=== PATIENT | male | born 1980 | race Caucasian/White ===

== ENCOUNTER 2019-02-26 10:48 | Inpatient (IN) | payer MEDICAID ==
[~2019-02-26] VITALS: Ht 180.3 cm; Wt 114.6 kg
--- NOTE | 2019-02-26 11:07 | NUR ---
pt to ed for bladder and flank pain x5 days. pt was diagnosed with 5 kidney stones in november with surgery scheduled for march 15. pt states pain is worse and he can no longer wait until march 15. pt would like stones removed as soon as possible. connected to monitors. vss. edmd present for exam. awaiting orders.
--- NOTE | 2019-02-26 11:18 | NUR ---
iv established. labs drawn and sent. ua collected and sent. awaiting further orders.
[2019-02-26] MEDS ORDERED: MORPHINE SULFATE 4 MG/ML, 1ML ONE (11:23)
[2019-02-26] MEDS ORDERED: ONDANSETRON 2MG/ML, 2ML ONE (11:23)
[2019-02-26] MEDS: MORPHINE SULFATE 4 MG/ML, 1ML IVPush PRN ×2 (11:25→15:11)
--- NOTE | 2019-02-26 11:29 | NUR ---
pt medicated per mar. vss. awaiting results at this time. no needs expressed. call light within reach.
[2019-02-26] MEDS ORDERED: ONDANSETRON 2MG/ML, 2ML IVPush ONE (11:30)
[2019-02-26] MEDS ORDERED: SODIUM CHLORIDE FLUSH 10ML SYR IVF ONE (11:30)
[2019-02-26 11:37] LABS: BASOPHILS # (AUTO) 0.02 x10^3/uL (0-0.1); BASOPHILS % (AUTO) 0 % (0-1); EOSINOPHILS # (AUTO) 0.07 x10^3/uL (0-0.4); EOSINOPHILS % (AUTO) 1 % (1-7); LYMPHOCYTES # (AUTO) 1.53 x10^3/uL (1-3.4); LYMPHOCYTES % (AUTO) 26 % (22-44); MD NO; MEAN CORPUSCULAR HEMOGLOBIN 31.1 pg (27.5-34.5); MEAN CORPUSCULAR HGB CONC 34.1 g/dL (33.2-36.2); MEAN CORPUSCULAR VOLUME 91.4 fL (81-97); MEAN PLATELET VOLUME 9.6 fL (7.4-10.4); MONOCYTES # (AUTO) 0.42 x10^3/uL (0.2-0.8); MONOCYTES % (AUTO) 7 % (2-9); NEUTROPHILS # (AUTO) 3.88 x10^3/uL (1.8-6.8); NEUTROPHILS % (AUTO) 66 % (42-75); PLATELET COUNT 283 x10^3/uL (130-400); RED BLOOD COUNT 4.81 x10^6/uL (4.38-5.82); RED CELL DISTRIBUTION WIDTH 12.7 % (9.4-14.8)
--- NOTE | 2019-02-26 11:38 | NUR ---
pt resting in room. call light within reach. no needs expressed. vss. awaiting lab results and urology consult.
[2019-02-26 11:46] LABS: ALANINE AMINOTRANSFERASE 19 U/L (12-78); ALBUMIN 4.1 g/dL (3.4-5.0); CALCIUM 8.9 mg/dL (8.5-10.1); CREATININE 1.03 mg/dL (0.7-1.3)
[2019-02-26 11:48] LABS: ALKALINE PHOSPHATASE 134 U/L (45-117); BILIRUBIN,TOTAL 0.4 mg/dL (0.2-1.0)
[2019-02-26 11:49] LABS: ANION GAP 4 mmol/L (5-15); CHLORIDE 110 mmol/L (98-107)
[2019-02-26 12:07] LABS: MICROSCOPIC INDICATED
--- NOTE | 2019-02-26 12:30 | NUR ---
PT RESTING IN ROOM. VSS. NO NEEDS EXPRESSED. PAIN CONTROLLED. CALL LIGHT WITHIN REACH. AWAITING UROLOGY CONSULT.
[2019-02-26 12:39] LABS: CULTURE INDICATED? NO
--- NOTE | 2019-02-26 13:24 | NUR ---
PT UP SELF TO RR WITH STEADY GAIT. VSS. NO OTHER NEEDS. AWAITING UROLOGY CONSULT.
[2019-02-26] MEDS ORDERED: SODIUM CHLORIDE 0.9% 1,000 ML IV SCH (14:43)
[2019-02-26 14:58] VITALS: BP 103/69
[2019-02-26] MEDS ORDERED: DEXTROSE 4 GM TAB.CHEW PO PRN (15:00)
[2019-02-26] MEDS ORDERED: PROMETHAZINE 25 MG/ML, 1ML IM PRN (15:00)
[2019-02-26] MEDS ORDERED: LABETALOL 5MG/ML, 20ML IVPush PRN (15:00)
[2019-02-26] MEDS ORDERED: DEXTROSE 50%, 50ML SYRINGE IVPush PRN (15:00)
[2019-02-26] MEDS ORDERED: GLUCAGON 1 MG IM PRN (15:00)
[2019-02-26] MEDS ORDERED: ACETAMINOPHEN 325 MG TABLET PO PRN (15:00)
[2019-02-26] MEDS: morphine SULFATE 10 MG/ML, 1ML IVPush PRN (15:10)
[2019-02-26] MEDS: POTASSIUM CHLORIDE 10 MEQ in D5%-0.45% NACL 1,000 ML IV SCH (17:37)
[2019-02-26] MEDS: SODIUM CHLORIDE 0.9% 1,000 ML IV SCH ×2 (19:00→23:00)
[2019-02-26] MEDS: OXYcodone/APAP 5/325MG TABLET PO PRN (19:47)
[2019-02-26 20:56] VITALS: BP 111/67
[2019-02-26] MEDS ORDERED: SODIUM CHLORIDE FLUSH 10ML SYR IVF SCH (21:00)
[2019-02-27] MEDS: ONDANSETRON 2MG/ML, 2ML IVPush PRN ×3 (00:08→14:06)
[2019-02-27] MEDS: KETOROLAC 30 MG/1 ML IV PRN ×3 (00:14→19:52)
[2019-02-27] MEDS: SODIUM CHLORIDE 0.9% 1,000 ML IV SCH ×3 (01:51→05:47)
[2019-02-27 04:25] VITALS: BP 98/64
[2019-02-27 05:30] LABS: BASOPHILS # (AUTO) 0.03 x10^3/uL (0-0.1); BASOPHILS % (AUTO) 1 % (0-1); EOSINOPHILS # (AUTO) 0.21 x10^3/uL (0-0.4); EOSINOPHILS % (AUTO) 3 % (1-7); LYMPHOCYTES # (AUTO) 2.45 x10^3/uL (1-3.4); LYMPHOCYTES % (AUTO) 35 % (22-44); MD NO; MEAN CORPUSCULAR HEMOGLOBIN 31.3 pg (27.5-34.5); MEAN CORPUSCULAR HGB CONC 34.1 g/dL (33.2-36.2); MEAN CORPUSCULAR VOLUME 91.8 fL (81-97); MEAN PLATELET VOLUME 9.6 fL (7.4-10.4); MONOCYTES % (AUTO) 7 % (2-9); NEUTROPHILS % (AUTO) 55 % (42-75); PLATELET COUNT 239 x10^3/uL (130-400); RED BLOOD COUNT 4.21 x10^6/uL (4.38-5.82); RED CELL DISTRIBUTION WIDTH 12.6 % (9.4-14.8)
[2019-02-27 05:35] LABS: CHLORIDE 111 mmol/L (98-107)
[2019-02-27 05:41] LABS: ALANINE AMINOTRANSFERASE 18 U/L (12-78); ALBUMIN 3.1 g/dL (3.4-5.0); ALKALINE PHOSPHATASE 112 U/L (45-117); ANION GAP 3 mmol/L (5-15); CREATININE 1.12 mg/dL (0.7-1.3); TOTAL PROTEIN 5.3 g/dL (6.4-8.2)
[2019-02-27 05:43] LABS: BILIRUBIN,TOTAL < 0.1 mg/dL (0.2-1.0)
[2019-02-27 07:46] VITALS: BP 95/58
[2019-02-27] MEDS: morphine SULFATE 10 MG/ML, 1ML IVPush PRN ×2 (08:50→14:40)
[2019-02-27] MEDS: TAMSULOSIN 0.4 MG CAP.ER.24H PO SCH (08:50)
[2019-02-27] MEDS: POTASSIUM CHLORIDE 10 MEQ in D5%-0.45% NACL 1,000 ML IV SCH ×2 (11:05→21:13)
[2019-02-27] MEDS ORDERED: FENTANYL PF 250 MCG/5ML ONE ×2 (13:10→15:47)
[2019-02-27] MEDS ORDERED: MIDAZOLAM 1 MG/ML, 2ML ONE ×2 (13:10→15:47)
[2019-02-27 14:45] VITALS: BP 98/62
[2019-02-27] MEDS ORDERED: ACETAMINOPHEN 325 MG TABLET PO PRN (17:00)
[2019-02-27] MEDS ORDERED: ONDANSETRON 2MG/ML, 2ML IV PRN (17:00)
[2019-02-27] MEDS ORDERED: HYDROmorphone 2 MG/ML, 1ML IVPush PRN (17:00)
[2019-02-27] MEDS ORDERED: ONDANSETRON ODT 8 MG PO PRN (17:00)
[2019-02-27] MEDS ORDERED: PROMETHAZINE 25 MG/ML, 1ML IV PRN (17:00)
[2019-02-27] MEDS ORDERED: OXYcodone 5 MG/5 ML ORAL.SOL UDC PO PRN (17:00)
[2019-02-27] MEDS ORDERED: PROPOFOL 10 MG/ML, 20ML ONE (17:22)
[2019-02-27] MEDS ORDERED: NEOSTIGMINE 1 MG/ML, 10ML ONE (17:22)
[2019-02-27] MEDS ORDERED: ROCURONIUM 10MG/ML,5ML ONE (17:22)
[2019-02-27] MEDS ORDERED: GLYCOPYRROLATE 0.2MG/1ML, 5ML ONE (17:22)
[2019-02-27] MEDS ORDERED: SUCCINYLCHOLINE 20 MG/ML, 10ML ONE (17:22)
[2019-02-27] MEDS ORDERED: DEXAMETHASONE 4 MG/ML, 1ML ONE (17:22)
[2019-02-27] MEDS ORDERED: ONDANSETRON 2MG/ML, 2ML ONE (17:22)
[2019-02-27] MEDS ORDERED: CEFAZOLIN 1,000 MG ONE (17:22)
[2019-02-27] MEDS ORDERED: FENTANYL PF 100 MCG/2ML ONE (18:42)
[2019-02-27] MEDS ORDERED: OXYcodone 5 MG/5 ML ORAL.SOL UDC ONE (18:42)
[2019-02-27] MEDS: FENTANYL PF 100 MCG/2ML IV PRN ×2 (18:46→19:05)
[2019-02-27 20:32] VITALS: BP 120/80
[2019-02-27] MEDS: OXYcodone/APAP 5/325MG TABLET PO PRN (22:44)
[2019-02-28 00:09] VITALS: BP 132/74
[2019-02-28] MEDS: KETOROLAC 30 MG/1 ML IV PRN ×2 (02:04→08:25)
[2019-02-28 04:09] VITALS: BP 114/62
[2019-02-28 04:14] LABS: BASOPHILS # (AUTO) 0.01 x10^3/uL (0-0.1); BASOPHILS % (AUTO) 0 % (0-1); EOSINOPHILS % (AUTO) 0 % (1-7); LYMPHOCYTES # (AUTO) 0.48 x10^3/uL (1-3.4); LYMPHOCYTES % (AUTO) 6 % (22-44); MD NO; MEAN CORPUSCULAR HEMOGLOBIN 30.8 pg (27.5-34.5); MEAN CORPUSCULAR HGB CONC 33.6 g/dL (33.2-36.2); MEAN CORPUSCULAR VOLUME 91.7 fL (81-97); MEAN PLATELET VOLUME 9.8 fL (7.4-10.4); MONOCYTES # (AUTO) 0.11 x10^3/uL (0.2-0.8); MONOCYTES % (AUTO) 1 % (2-9); NEUTROPHILS # (AUTO) 7.27 x10^3/uL (1.8-6.8); NEUTROPHILS % (AUTO) 93 % (42-75); PLATELET COUNT 262 x10^3/uL (130-400); RED BLOOD COUNT 4.49 x10^6/uL (4.38-5.82); RED CELL DISTRIBUTION WIDTH 12.5 % (9.4-14.8)
[2019-02-28] MEDS: POTASSIUM CHLORIDE 10 MEQ in D5%-0.45% NACL 1,000 ML IV SCH (06:34)
[2019-02-28] MEDS ORDERED: SODIUM CHLORIDE 0.9% 1,000 ML IV SCH (07:30)
[2019-02-28 07:55] VITALS: BP 126/66
[2019-02-28] MEDS: TAMSULOSIN 0.4 MG CAP.ER.24H PO SCH (08:16)
[2019-02-28 10:17] VITALS: BP 135/85
[2019-02-28] MEDS ORDERED: ACET325T14 PO (11:46)
[2019-02-28] MEDS ORDERED: TAMS-11 PO (11:46)
[2019-03-01] MEDS ORDERED: ONDA4TAB7 PO (05:20)
[2019-03-01] MEDS ORDERED: HYDR-3237 PO (05:20)
== END 2019-02-28 12:07 | disposition home or self-care (01) | DRG 661 ==
LOC: ED 11:45 → EDIP 13:29 → 4NOR 14:39 → DCLOUNGE 02-28 11:57
PROVIDERS: ADMIT Hospitalist; ATTEND Hospitalist
PROC: 0TC78ZZ Extirpation of Matter from Left Ureter, Via Natural or Artificial Opening Endoscopic (ICD-10-PCS; 2019-02-27)
PROC: 0T768DZ Dilation of Right Ureter with Intraluminal Device, Via Natural or Artificial Opening Endoscopic (ICD-10-PCS; 2019-02-27)
PROC: 0TJB8ZZ Inspection of Bladder, Via Natural or Artificial Opening Endoscopic (ICD-10-PCS; 2019-02-27)
PROC: 0T778DZ Dilation of Left Ureter with Intraluminal Device, Via Natural or Artificial Opening Endoscopic (ICD-10-PCS; principal; 2019-02-27 13:00)
DX: N13.2 Hydronephrosis with renal and ureteral calculous obstruction (principal); E86.0 Dehydration; E16.2 Hypoglycemia, unspecified; R11.2 Nausea with vomiting, unspecified
CPT/HCPCS: 36415; 74018; 76000; 76770; 80053; 81001; 82360; 82962; 85025; 88300; 96374; 99285; G0378; J0690; J1100; J1885; J2250; J2405; J2704; J2710; J3010; J3480; C1758; C1769; C2617; J0330; J2270; J7030

== ENCOUNTER 2019-03-01 04:49 | Inpatient (IN) | payer MEDICAID ==
[~2019-03-01] VITALS: Ht 180.3 cm; Wt 111.0 kg
[~2019-03-01 04:49] MED LIST: ACET325T14 PO; TAMS-11 PO
[2019-03-01] MEDS ORDERED: HYDROmorphone 1 MG/ML, 1ML VIAL ONE ×2 (05:12→06:04)
[2019-03-01] MEDS ORDERED: ONDANSETRON 2MG/ML, 2ML ONE (05:12)
[2019-03-01] MEDS: HYDROmorphone 2 MG/ML, 1ML IVPush PRN ×2 (05:15→06:07)
[2019-03-01] MEDS ORDERED: HYDR-3237 PO (05:20)
[2019-03-01] MEDS ORDERED: ONDA4TAB7 PO (05:20)
--- NOTE | 2019-03-01 05:21 | NUR ---
IV SITE STARTED, PT MEDICATED PER MAR. MONITORS IN PLACE, CALL LIGHT WITHIN REACH
[2019-03-01] MEDS ORDERED: ONDANSETRON 2MG/ML, 2ML IVPush ONE (05:30)
[2019-03-01] MEDS ORDERED: SODIUM CHLORIDE FLUSH 10ML SYR IVF ONE (05:30)
--- NOTE | 2019-03-01 05:46 | NUR ---
PRODUCTION CONTROLLER AT PT'S BEDSIDE
--- NOTE | 2019-03-01 07:01 | NUR ---
REPORT GIVEN TO ALO PENA
--- NOTE | 2019-03-01 07:02 | NUR ---
RECEIVED REPORT AND ASSUMED PT. CARE. PT. IS RESTING WITH THE CP MONITOR IN PLACE. PT.'S VSS. HOB IS ELEVATED GREATER THAN 30 DEGREES. SIDERAILS REMAIN UP X 2 WITH THE CALL LIGHT IN PLACE. PT. STATES RELIEF FROM PAIN MEDS.
[2019-03-01] MEDS ORDERED: LACTATED RINGERS 1,000 ML IV SCH (07:30)
[2019-03-01] MEDS ORDERED: HYDROmorphone 1 MG/ML, 1ML INJ IVPush PRN (07:30)
[2019-03-01] MEDS ORDERED: KETOROLAC 30 MG/1 ML IVPush PRN (07:30)
[2019-03-01] MEDS ORDERED: CEFAZOLIN PMX 1GM/50ML 50 ML IV SCH (07:30)
[2019-03-01] MEDS ORDERED: CEFAZOLIN PMX 1GM/50ML 50 ML ONE (07:47)
--- NOTE | 2019-03-01 07:57 | NUR ---
IV ABX INFUSING NO BLOOD CULTURES ORDERED.
[2019-03-01] MEDS ORDERED: SODIUM CHLORIDE FLUSH 10ML SYR IVF PRN (08:00)
--- NOTE | 2019-03-01 08:03 | NUR ---
REPORT CALLED. PT. IS READY FOR TRANSPORT.
[2019-03-01] MEDS: LACTATED RINGERS 1,000 ML IV SCH ×2 (09:00→20:05)
[2019-03-01] MEDS: KETOROLAC 30 MG/1 ML IV PRN ×2 (12:12→23:07)
[2019-03-01] MEDS ORDERED: HYDROmorphone 1 MG/ML, 1ML INJ IV PRN (12:30)
[2019-03-01 13:51] VITALS: BP 110/63
[2019-03-01] MEDS: HYDROmorphone 2 MG/ML, 1ML IV PRN ×3 (16:03→23:10)
[2019-03-01] MEDS: CEFAZOLIN PMX 1GM/50ML 50 ML IV SCH (16:24)
[2019-03-01 20:23] VITALS: BP 125/84
[2019-03-02] MEDS: CEFAZOLIN PMX 1GM/50ML 50 ML IV SCH ×4 (00:05→23:37)
[2019-03-02 00:15] VITALS: BP 97/48
[2019-03-02] MEDS: HYDROmorphone 2 MG/ML, 1ML IV PRN ×2 (03:12→07:14)
[2019-03-02] MEDS: LACTATED RINGERS 1,000 ML IV SCH ×2 (05:50→21:14)
[2019-03-02 06:45] VITALS: BP 104/69
[2019-03-02] MEDS ORDERED: HYDROCORTISONE 25 MG SUPP PR PRN (11:30)
[2019-03-02] MEDS ORDERED: PHENAZOPYRIDINE 200 MG TABLET PO PRN (11:30)
[2019-03-02] MEDS ORDERED: DIAZEPAM 5 MG TABLET PO PRN (11:30)
[2019-03-02] MEDS ORDERED: MIDAZOLAM 1 MG/ML, 2ML ONE (11:44)
[2019-03-02] MEDS ORDERED: FENTANYL PF 250 MCG/5ML ONE (11:45)
[2019-03-02] MEDS ORDERED: SUCCINYLCHOLINE 20 MG/ML, 10ML ONE (12:35)
[2019-03-02] MEDS ORDERED: ROCURONIUM 10MG/ML,5ML ONE (12:35)
[2019-03-02] MEDS ORDERED: SCOPOLAMINE PATCH, 1.5MG PATCH.TD72 TD PRN (13:30)
[2019-03-02] MEDS ORDERED: MEPERIDINE/PF 25MG/0.5ML IVPush PRN (13:30)
[2019-03-02] MEDS ORDERED: ALBUTEROL/IPRATROPIUM 2.5MG/0.5MG, 3 ML NPPB PRN (13:30)
[2019-03-02] MEDS ORDERED: OXYcodone 5 MG/5 ML ORAL.SOL UDC PO PRN (13:30)
[2019-03-02] MEDS ORDERED: ONDANSETRON 2MG/ML, 2ML IV PRN (13:30)
[2019-03-02] MEDS ORDERED: PROMETHAZINE 25 MG/ML, 1ML IV PRN (13:30)
[2019-03-02] MEDS ORDERED: MIDAZOLAM 1 MG/ML, 2ML IV PRN (13:30)
[2019-03-02] MEDS ORDERED: KETOROLAC 30 MG/1 ML IV PRN ×2 (13:30→15:36)
[2019-03-02] MEDS ORDERED: HYDROmorphone 2 MG/ML, 1ML IVPush PRN (13:30)
[2019-03-02] MEDS ORDERED: ACETAMINOPHEN 325 MG TABLET PO PRN (13:30)
[2019-03-02] MEDS ORDERED: ONDANSETRON 2MG/ML, 2ML ONE (13:45)
[2019-03-02] MEDS ORDERED: PROPOFOL 10 MG/ML, 20ML ONE (13:45)
[2019-03-02] MEDS ORDERED: DEXAMETHASONE 4 MG/ML, 1ML ONE (13:45)
[2019-03-02] MEDS ORDERED: CEFAZOLIN 1,000 MG ONE (13:45)
[2019-03-02] MEDS ORDERED: OMNIPAQUE 350 MG/ML, 50 ML BOTTLE ONE (13:53)
[2019-03-02] MEDS ORDERED: OXYcodone 5 MG/5 ML ORAL.SOL UDC ONE (14:06)
[2019-03-02] MEDS ORDERED: KETOROLAC 30 MG/1 ML ONE (14:06)
[2019-03-02] MEDS ORDERED: FENTANYL PF 100 MCG/2ML ONE (14:06)
[2019-03-02] MEDS: FENTANYL PF 100 MCG/2ML IV PRN ×2 (14:09→14:30)
[2019-03-02] MEDS ORDERED: PHENAZOPYRIDINE 200 MG TABLET ONE (14:40)
[2019-03-02 15:05] VITALS: BP 119/77
[2019-03-02] MEDS: OXYBUTYNIN CHLORIDE 5 MG TABLET PO SCH ×2 (16:56→21:13)
[2019-03-02] MEDS: OXYcodone/APAP 5/325MG TABLET PO PRN ×2 (17:22→21:13)
[2019-03-02 18:42] VITALS: BP 107/67
[2019-03-02] MEDS: DOCUSATE 100 MG CAPSULE PO SCH (21:13)
[2019-03-03 00:22] VITALS: BP 108/71
[2019-03-03] MEDS: OXYcodone/APAP 5/325MG TABLET PO PRN ×3 (01:16→08:20)
[2019-03-03 04:49] VITALS: BP 107/70
[2019-03-03] MEDS: LACTATED RINGERS 1,000 ML IV SCH (05:20)
[2019-03-03 08:00] VITALS: BP 103/58
[2019-03-03] MEDS: OXYBUTYNIN CHLORIDE 5 MG TABLET PO SCH (08:20)
[2019-03-03] MEDS: CEFAZOLIN PMX 1GM/50ML 50 ML IV SCH (08:20)
[2019-03-03] MEDS: DOCUSATE 100 MG CAPSULE PO SCH (08:20)
[2019-03-03] MEDS ORDERED: OXYC-302 PO (11:45)
== END 2019-03-03 11:50 | disposition home or self-care (01) | DRG 660 ==
LOC: ED 05:25 → EDIP 07:30 → 4NOR 08:19 → DCLOUNGE 03-03 11:44
PROVIDERS: ADMIT Urology; ATTEND Urology
PROC: 0TF68ZZ Fragmentation in Right Ureter, Via Natural or Artificial Opening Endoscopic (ICD-10-PCS; principal; 2019-03-01)
PROC: 0T738DZ Dilation of Right Kidney Pelvis with Intraluminal Device, Via Natural or Artificial Opening Endoscopic (ICD-10-PCS; 2019-03-01)
PROC: 0TP98DZ Removal of Intraluminal Device from Ureter, Via Natural or Artificial Opening Endoscopic (ICD-10-PCS; 2019-03-01)
PROC: BT141ZZ Fluoroscopy of Kidneys, Ureters and Bladder using Low Osmolar Contrast (ICD-10-PCS; 2019-03-02)
DX: T83.84XA Pain due to genitourinary prosthetic devices, implants and grafts, initial encounter (principal); N13.2 Hydronephrosis with renal and ureteral calculous obstruction; K59.00 Constipation, unspecified; K64.9 Unspecified hemorrhoids; Y83.8 Other surgical procedures as the cause of abnormal reaction of the patient, or of later complication, without mention of misadventure at the time of the procedure; Z87.442 Personal history of urinary calculi; Y92.89 Other specified places as the place of occurrence of the external cause
CPT/HCPCS: 74420; 76770; C1726; G0378; J0690; J1100; J1170; J1885; J2250; J2405; J2704; J3010; Q9967; C1758; C1769; C2617; J0330; J7120